=== PATIENT | male | born 1995 | race Caucasian/White ===

== ENCOUNTER 2022-12-27 11:09 | Emergency (ER) | payer SELFPAY ==
[2022-12-27 11:34] LABS: Basophils % 0.4 %; Eosinophils % 0.3 %; Hematocrit 49.3 % (37-53); Lymphocytes # 1.2 10^3/uL (0.8-4.8); Lymphocytes % 11.9 %; Mean Corpuscular HGB Conc 34.5 g/dL (30-55); Mean Corpuscular Hemoglobin 31.4 pg (27-33); Mean Corpuscular Volume 91.1 fl (82-101); Mean Platelet Volume 8.7 fL (7.4-10.4); Monocytes # 0.7 10^3/uL (0.2-0.9); Monocytes % 7.2 %; Neutrophils # 7.94 10^3/uL (1.8-7.7); Neutrophils % 79.7 %; Nucleated Red Blood Cells % 0 %; Platelet Count 226 10^3/cmm (157-399); Red Blood Count 5.41 10^6/uL (3.85-5.65); Red Cell Distribution Width 12.1 % (12.1-15.1); White Blood Count 9.97 10^3/uL (3.29-11.43)
[2022-12-27 11:54] LABS: Alanine Aminotransferase 18 U/L (0-41); Albumin Level 4.7 g/dL (3.5-5.2); Alkaline Phosphatase 69 U/L (40-130); Anion Gap 14.5 (5-19); Aspartate Amino Transferase 15 U/L (0-40); Blood Urea Nitrogen 10 mg/dL (6-20); Calcium 9.6 mg/dL (8.5-10.5); Carbon Dioxide 26 mmol/L (22-29); Chloride 102 mmol/L (98-107); Globulin 3.6 g/dL (1.3-4.6); Glomerular Filtration Rate 117.8 mL/min (90-130); Glucose 107 mg/dL (65-115); Lipase 20 U/L (13-60); Osmolality Calculated 286 mOsm/kg (285-295); Potassium 4.5 mmol/L (3.5-5.1); Sodium 138 mmol/L (136-145); Total Bilirubin 0.7 mg/dL (0.15-1.2); Total Protein 8.3 g/dL (6.6-8.7)
[2022-12-27 11:59] VITALS: BP 129/75; PULSE 80; RESP 15; TEMP 36.7; O2SAT 99; BMI 23.1
[2022-12-27 12:08] VITALS: BP 118/75; PULSE 86; RESP 18; O2SAT 99
--- NOTE | 2022-12-27 12:20 | CT_ITS ---
WS: [id number] CT ABDOMEN AND PELVIS WITH CONTRAST HISTORY: rlq pain TECHNIQUE: Imaging performed of the abdomen and pelvis with IV contrast. Single phase imaging of the abdomen. Coronal and sagittal reformats are submitted. All CT scans at [facility] use at [address] one of these dose optimization techniques: automated exposure control; mA and/or kV adjustment per patient size (includes targeted exams where dose is matched to clinical indication); or iterative re construction. IV CONTRAST: Omnipaque 350; 100 mL IV. Oral contrast: No DLP: 547.83 mGy.cm COMPARISON: None available. Lower thorax: Benign granuloma RIGHT lower lobe. Heart is normal size. No hiatal hernia. Liver/biliary system: Normal size with no intrahepatic dilatation. Gallbladder: Normal. No gallstones or wall thickening. No pericholecystic fluid. Pancreas: Normal size pancreas and pancreatic duct. No adjacent inflammation. Spleen: Normal size spleen. No mass or infarct. Adrenal glands: Normal. Right kidney: Normal. Left kidney: Normal. Aorta: Normal. Lymphadenopathy: Several RIGHT lower quadrant lymph nodes are identified. These lymph nodes are less than 1 cm with mild hyperemia. Free fluid: None. GI tract: There is also mild fluid distention of the mid to distal small bowel although no obstructiv e pattern. Mild circumferential wall thickening involving the sigmoid colon to the rectum. No obstruc tion. Normal appendix. Abdominal wall: Unremarkable abdominal wall. No hernia. Pelvis: No free fluid or adenopathy within the pelvis. Bones: Unremarkable. IMPRESSION: 1. Numerous, mildly hyperemic RIGHT lower quadrant lymph nodes consistent with mesenteric adenitis. 2. There is a small amount of fluid in the mid to distal small bowel with no obstruction. 3. Mild circumferential wall thickening and hyperemia rectosigmoid region. There is no obstruction. 4. Consider acute exacerbation of inflammatory bowel disease or infectious process. 5. Normal appendix.
--- NOTE | 2022-12-27 12:37 | ED_ITS ---
HPI - Abdominal Pain General: Chief Complaint: Abdominal Pain Stated Complaint: Abd Pain Time Seen by Provider: 12/27/22 11:13 Source: patient Mode of arrival: ambulatory Limitations: no limitations History of Present Illness: 27-year-old male states that he has been having lower abdominal pain over the last 2 days. States the pains been sharp in nature he has had some constipation as well he is taking laxatives with minimal relief. He denies any worsening proving factors denies any vomiting. He states he has had some pain with bowel movements denies any testicle or penile pain or dysuria Associated Symptoms: Reports constipation; Denies chills, diarrhea, fever(s), nausea and vomiting Review of Systems Const: Denies: fever(s) or chills Eyes: Denies: eye discomfort ENMT: Denies: throat pain or dental pain Card: Denies: chest pain Resp: Denies: dyspnea GI: Reports: abdominal pain and constipation; Denies: nausea, vomiting or diarrhea Musc: Denies: neck pain or back pain Skin/Breast: Denies: rash Neuro: Denies: headache(s) Physical Exam Const: COMMON NORMALS: no acute distress, patient oriented x3 and healthy appearing HENMT: COMMON NORMALS: normocephalic and atraumatic HEAD & SCALP: normocephalic and atraumatic Neck/C-Spine: COMMON NORMALS: full ROM and supple Chest: COMMONS NORMALS: normal inspection of the chest and normal palpation of entire chest wall Resp: COMMON NORMALS: normal respiratory effort, No retractions, No use of accessory muscles and clear to auscultation bilaterally AUSCULTATION: clear to auscultation bilaterally Cardio: COMMON NORMALS: regular rate, regular rhythm and No murmurs present (Cardio) RATE: regular rate RHYTHM: regular rhythm GI: COMMON NORMALS: Normal to inspection, nondistended, normoactive bowel sounds present, Soft to palpation and no masses PALPATION: Yes Soft to palpation OTHER: lower abdominal tenderness mild Extremity: COMMON NORMALS: normal to inspection and full ROM Neuro: COMMON NORMALS: patient oriented x3, moves all extremities and no focal motor deficits Psych: COMMON NORMALS: mental status grossly normal, Normal thought process present and cooperative THOUGHT PROCESS: Normal thought process present Skin: COMMON NORMALS: no rashes or lesions noted and no wounds GENERAL SKIN EXAM: no rashes or lesions noted Course Vital Signs: Vital signs: Vital Signs Temperature 98.1 F 12/27/22 11:59 Pulse Rate 86 12/27/22 12:08 Respiratory Rate 18 12/27/22 12:08 Blood Pressure 118/75 12/27/22 12:08 Pulse Oximetry 99 12/27/22 12:08 Oxygen Delivery Me thod Room Air 12/27/22 12:08 MDM - Abdominal Pain Medical Decision Making Patient presents with abdominal pain he does have some pain with bowel movements as well CT showed a possible colitis we will start him on Cipro Flagyl did give him warnings no drink alcohol with the Flagyl and no heavy lifting or running on the Cipro as it makes his tendon weak. Informed he needs a colonoscopy they are wanting to follow-up with Dr. Tran informed him that that is fine but he needs to make sure he gets followed up and will need a colonoscopy he is return if worsening they understand agree to plan. Lab Data 12/27/22 11:28 12/27/22 11:28 Labs/Radiology: Laboratory Results WBC 9.97 10^3/uL (3.29-11.43) 12/27/22 11:28 RBC 5.41 10^6/uL (3.85-5.65) 12/27/22 11:28 Hgb 17.00 g/dL (11.27-16.99) H 12/27/22 11:28 Hct 49.3 % (37-53) 12/27/22 11:28 MCV 91.1 fl (82-101) 12/27/22 11:28 MCH 31.4 pg (27-33) 12/27/22 11:28 MCHC 34.5 g/dL (30-55) 12/27/22 11:28 RDW 12.1 % (12.1-15.1) 12/27/22 11:28 Plt Count 226 10^3/cmm (157-399) 12/27/22 11:28 MPV 8.7 fL (7.4-10.4) 12/27/22 11:28 Neut % (Auto) 79.7 % 12/27/22 11:28 Lymph % (Auto) 11.9 % 12/27/22 11:28 [place] % (Auto) 7.2 % 12/27/22 11:28 Eos % (Auto) 0.3 % 12/27/22 11:28 Baso % (Auto) 0.4 % 12/27/22 11:28 Neut # (Auto) 7.94 10^3/uL (1.8-7.7) H 12/27/22 11:28 Lymph # (Auto) 1.2 10^3/uL (0.8-4.8) 12/27/22 11:28 [place] # (Auto) 0.7 10^3/uL (0.2-0.9) 12/27/22 11:28 Eos # (Auto) 0.0 10^3/uL (0.0-0.8) 12/27/22 11:28 Baso # (Auto) 0.0 10^3/uL (0.0-0.1) 12/27/22 11:28 Nucleated RBC % (auto) 0 % 12/27/22 11:28 Nucleated RBCs # 0.0 /100WBC 12/27/22 11:28 Sodium 138 mmol/L (136-145) 12/27/22 11:28 Potassium 4.5 mmol/L (3.5-5.1) 12/27/22 11:28 Chloride 102 mmol/L (98-107) 12/27/22 11:28 Carbon Dioxide 26 mmol/L (22-29) 12/27/22 11:28 Anion Gap 14.5 (5-19) 12/27/22 11:28 BUN 10 mg/dL (6-20) 12/27/22 11:28 Creatinine 0.8 mg/dL (0.7-1.2) 12/27/22 11:28 GFR Calculation 117.8 mL/min (90-130) 12/27/22 11:28 Glucose 107 mg/dL (65-115) 12/27/22 11:28 Calculated Osmolality 286 mOsm/kg (285-295) 12/27/22 11:28 Calcium 9.6 mg/dL (8.5-10.5) 12/27/22 11:28 Total Bilirubin 0.7 mg/dL (0.15-1.2) 12/27/22 11:28 AST 15 U/L (0-40) 12/27/22 11:28 ALT 18 U/L (0-41) 12/27/22 11:28 Alkaline Phosphatase 69 U/L (40-130) 12/27/22 11:28 Total Protein 8.3 g/dL (6.6-8.7) 12/27/22 11:28 Albumin 4.7 g/dL (3.5-5.2) 12/27/22 11:28 Globulin 3.6 g/dL (1.3-4.6) 12/27/22 11:28 Lipase 20 U/L (13-60) 12/27/22 11:28 Discharge Plan Discharge Patient Disposition: Home Clinical Impression: Abdominal pain, Colitis, Mesenteric adenitis Condition: Stable Prescriptions: New metronidazole 500 mg tablet 500 mg PO Q8H 7 Days Qty: 21 0RF Cipro 500 mg tablet 500 mg PO BID Qty: 14 0RF Discharge Orders: Discharge ED (Routine); Ordered 12/27/22 Ordered By: Ninfa Ghosh Discharge Diet: Advance as tolerated Discharge Activity: Resume usual activity Patient Instructions: Abdominal Pain (ED), Mesenteric Adenitis (ED), Colitis (ED) Coding Level of Care Code ED Clinical Nurse Reviewer for Eric Villasenor
[2022-12-27] MEDS: iohexol 350 mg/mL 500 mL Btl (per mL) IV (12:47)
[2022-12-27 13:38] LABS: Add Urine Microscopic? YES; Bilirubin Urine Neg (Negative); Blood Urine Neg (Negative); Glucose Urine UA Norm (Normal); Ketones Urine Negative (Negative); Leukocyte Esterase Urine Negative (Negative); Nitrate Urine Negative (Negative); Protein Urine Trace (Negative); Urine Appearance Clear (CLEAR); Urine Color Yellow (Yellow); Urobilinogen Urine Norm (Negative); pH Urine 7 (5-7)
[2022-12-27 13:39] LABS: Add Urine Culture? No; RBC Urine 0-4 /hpf (0-2); Squamous Epithelial Cell Urine 0-4 /hpf (0-5); WBC Urine 0-4 /hpf (0-5)
== END 2022-12-27 13:37 | disposition home or self-care (01) ==
PROVIDERS: Emergency Provider Emergency Medicine
DX: K52.9 Noninfective gastroenteritis and colitis, unspecified (principal); I88.0 Nonspecific mesenteric lymphadenitis
CPT/HCPCS: 36415; 74177; 80053; 81001; 83690; 85025; 99285; Q9967